=== PATIENT | male | born 1950 | race Caucasian/White ===

== ENCOUNTER → 2016-09-08 | Outpatient (CLI) | payer OTHER, MEDICARE ==
[~2016-09-08] MED LIST: ALDACTONE25 MG PO; ANDROGEL TOP; ASPIRIN81 M2 PO; CIALIS20 MG PO; FISH OIL 1,001000 M2 PO; FLEXERIL PO; LIPITOR10 MG PO; LISINOPRIL-HCT1 EAC1 PO; NORCO 5-325 TA1 EACH PO; NORVASC5 MG PO; PAXIL10 MG; POTASSIUM20 PO; ZYRTEC10 MG
== END ==
LOC: MRI 10:03
DX: S89.82XA Other specified injuries of left lower leg, initial encounter (principal); X58.XXXA Exposure to other specified factors, initial encounter; Y93.89 Activity, other specified; Y92.89 Other specified places as the place of occurrence of the external cause; Y99.8 Other external cause status